=== PATIENT | female | born 1960 | race Caucasian/White ===

== ENCOUNTER 2016-08-16 15:25 | Emergency (ER) | payer MEDICAID ==
[~2016-08-16] VITALS: Ht 170.2 cm; Wt 84.0 kg
[~2016-08-16 15:25] MED LIST: FLUO40CA9 PO; HYDR25TA6 PO; LISI40TA PO; METH40TA2 PO
[2016-08-16 15:43] VITALS: BP 140/98
== END 2016-08-16 16:00 | disposition home or self-care (01) ==
LOC: ED 15:40
DX: B86 Scabies (principal)
CPT/HCPCS: 99283